=== PATIENT | female | born 1945 | race Caucasian/White ===

== ENCOUNTER 2018-04-10 19:50 | Emergency (ER) | payer OTHER ==
[~2018-04-10] VITALS: Ht 157.5 cm; Wt 76.3 kg
[~2018-04-10 19:50] MED LIST: CHEWABLE ASPIRI81 MG PO; L-THYROXINE SO0.1 MG PO; ZES20 PO
[2018-04-10 23:30] VITALS: BP 165/76
== END 2018-04-10 23:30 | disposition home or self-care (01) ==
LOC: ED 19:50
DX: R19.7 Diarrhea, unspecified (principal); R10.11 Right upper quadrant pain; R11.0 Nausea; I10 Essential (primary) hypertension; Z88.5 Allergy status to narcotic agent; Z90.49 Acquired absence of other specified parts of digestive tract; Z98.51 Tubal ligation status
CPT/HCPCS: Q0162

== ENCOUNTER 2018-05-07 16:36 | Inpatient (IN) | payer OTHER ==
[~2018-05-07] VITALS: Ht 157.5 cm; Wt 75.1 kg
--- NOTE | 2018-05-07 17:05 | NUR ---
EKG IN PROG
--- NOTE | 2018-05-07 17:50 | NUR ---
REC'D A 72/F IN RM 8 WITH C/O INTERMITTMENT SHARP CP X 1 DAY. PT REPORTS LEFT ARM PAIN WITH NUMBNESS WHILE AT THE STORE YESTERDAY. PT REPORTS LEFT ARM PAIN HAS SUBSIDED HOWEVER CP PRESENT. PT DENIES SOB. PT AAOX4, CLEAR SPEEECH, NO FACIAL DROOP, STRONG 2+ UMER IN SHOP SERVICE TECHNICIAN, ON CM, SPOUSE AT BEDSIDE.
--- NOTE | 2018-05-07 17:50 | NUR ---
DR MCKEON AT BEDSIDE FOR MSE.
--- NOTE | 2018-05-07 17:56 | NUR ---
PT AMBULATED TO THE RESTROOM WITH SPECIMEN CONTAINER .
--- NOTE | 2018-05-07 18:09 | NUR ---
XRAY AT BEDSIDE.
--- NOTE | 2018-05-07 18:24 | NUR ---
MEDICATED PT FOR HBP AND CP. PLEASE SEE EMAR.
--- NOTE | 2018-05-07 18:25 | NUR ---
PT TAKEN TO CT VIA WC.
[2018-05-07 18:28] LABS: BASOPHIL % 0.9 % (0-2); PLATELET COUNT 213 x10^3mcL (130-400)
[2018-05-07 18:31] LABS: RED CELL DISTRIBUTION WIDTH 15.4 % (11.5-14.5)
[2018-05-07 18:44] LABS: CALCIUM 8.8 mg/dL (8.5-10.1); CARBON DIOXIDE 31.7 mmol/L (21-32); CHLORIDE SERUM 98 mmol/L (98-107); CREATININE SERUM 0.8 mg/dL (0.6-1.0); GLUCOSE SERUM 106 mg/dL (74-106); POTASSIUM SERUM 4.3 mmol/L (3.5-5.1); SODIUM SERUM 135 mmol/L (136-145)
--- NOTE | 2018-05-07 18:45 | NUR ---
PT BACK FROM CT WITHOUT INCIDENCE, BACK IN ED GURNEY IN POSITION OF COMFORT, A/O X4, RESPS EVEN AND UNLABORED, SKIN WARM/DRY TO TOUCH, NO S/S OF DISTRESS NOTED. AT BEDSIDE, COMFORT MEASURES IN PLACE, CALL LIGHT WITHIN REACH.
[2018-05-07 18:56] LABS: ALKALINE PHOSPHATASE 91 U/L (46-116); ALT/SGPT 19 U/L (14-59); AMYLASE 62 U/L (25-115); AST/SGOT 19 U/L (15-37); BILIRUBIN TOTAL 0.41 mg/dL (0.20-1.00); CHOLESTEROL 177 mg/dL (<200); HDL CHOLESTEROL 56 mg/dL (40-60); LIPASE 100 IU/L (73-393); MAGNESIUM 2.3 mg/dL (1.8-2.4); T4(THYROXINE) 7.5 ug/dL (4.7-13.3); TOTAL PROTEIN, SERUM 7.5 g/dL (6.4-8.2)
[2018-05-07 19:30] LABS: rbc morphology (normal/abnorm) NORMAL (NORMAL)
--- NOTE | 2018-05-07 19:49 | NUR ---
REPORT GIVEN TO EFRAIN BATRES TO ASSUME CARE OF THE PT.
--- NOTE | 2018-05-07 20:35 | NUR ---
RECEIVED PT FROM EFRAIN JALLOH. PT A/OX4. DENIES PAIN. DENIES SOB ON RA. IV PATENT AND FLUSHING WELL. DAUGHTER AT BEDSIDE. ORIENTED PT TO ROOM AND SURROUNDINGS. CALL LIGHT WITHIN REACH, BED IN LOW POSITION. WILL CONTINUE TO MONITOR.
--- NOTE | 2018-05-07 20:35 | NUR ---
PT WAS RECEIVED BY PRIMARY NURSE GISEL FROM ED VIA [place], PT WAS SEEN LYING IN BED, CAME IN DUE TO CHEST PAIN AND LEFT ARM TINGLING SENSATION. AAOX4. DENIES HEADACHE/DIZZINESS. ABLE TO FOLLOW COMMANDS. SPEECH IS CLEAR. HAND VOCAL PERFORMER ARE EQUAL AND STRONG. NO FACIAL DROOP/ARM DRIFT NOTED. NO SOB, LUNG SOUNDS CTA. DENIES CHEST PAIN/PRESSURE, SR W/ DEPRESSED ST, HR AT 69 ON THE MONITOR. DENIES ABDOMINAL DISCOMFORT. BOWEL SOUNDS ACTIVE. VOIDS. IV SITE ON THE RAC IS PATENT AND INTACT. DAUGHTER AND MEDICAL STUDENT AT BEDSIDE. ENDORSED TO PRIMARY NURSE GISEL FOR CONTINUITY OF CARE INCLUDING YM=655/74.
[2018-05-07 20:47] VITALS: BP 177/74
[2018-05-07 20:52] VITALS: Ht 157.5 cm; Wt 75.1 kg
--- NOTE | 2018-05-07 22:40 | NUR ---
PT C/O "SORENESS" AND "PRESSURE" TO L SHOULDER/NECK. BACLOFEN PROVIDED PRN PER EMAR. WILL CONTINUE TO MONITOR.
--- NOTE | 2018-05-08 03:00 | NUR ---
PT REQUESTING TYLENOL FOR MILD 4/10 PAIN TO NECK/SHOULDERS. PROVIDED PER EMAR. WILL CONTINUE TO MONITOR.
[2018-05-08 05:45] VITALS: BP 143/68
[2018-05-08 06:31] LABS: BASOPHIL % 0.3 % (0-2); CALCIUM 8.3 mg/dL (8.5-10.1); CARBON DIOXIDE 28.7 mmol/L (21-32); CHLORIDE SERUM 101 mmol/L (98-107); CREATININE SERUM 0.7 mg/dL (0.6-1.0); GLUCOSE SERUM 125 mg/dL (74-106); PLATELET COUNT 198 x10^3mcL (130-400); POTASSIUM SERUM 3.6 mmol/L (3.5-5.1); SODIUM SERUM 137 mmol/L (136-145)
[2018-05-08 07:12] LABS: RED CELL DISTRIBUTION WIDTH 15.5 % (11.5-14.5)
--- NOTE | 2018-05-08 07:14 | NUR ---
RECEIVED PT FROM NOC EFRAIN BATRES. PT FOUND RESTING IN BED WITH BOTH EYES CLOSED. NO S/S OF ACUTE DISTRESS. SINUS JAYESH WITH DEPRESSED T WAVE , HR 58. NO SOB ON ROOM AIR. R/R EVEN/UNLABORED. IV WNL TO RAC, NO REDNESS, NO SWELLING, NO INFILTRATION. SALINE LOCKED. BED IN LOW POSITION. CALL LIGHT WITHIN REACH. WILL CONT. TO MONITOR.
[2018-05-08 08:32] VITALS: BP 142/65
[2018-05-08 12:07] VITALS: BP 120/61
--- NOTE | 2018-05-08 12:21 | NUR ---
PT LAYING IN BED WITH HOB ELEVATED. NO S/S OF ACUTE DISTRESS. DENIES PAIN. NO SOB ON ROOM AIR. NO NUMBNESS, NO TINGLING. STRENGTH EQUAL BUE/BLE. NO CUEVA. NO DIZZINESS. FACE SYMMETRICAL. AA/OX4. AT BEDSIDE. BED IN LOW POSITION. CALL LIGHT WITHIN REACH. WILL CONT. TO MONITOR.
[2018-05-08 16:14] VITALS: BP 120/52
--- NOTE | 2018-05-08 16:51 | NUR ---
PT LAYING IN BED. AT BEDSIDE. PT AA/OX4. NO S/S OF ACUTE DISTRESS. NO COMPLAINT OF PAIN. NO SOB ON ROOM AIR. NO NUMBNESS, NO TINGLING. STRENGTH EQUAL BUE/BLE. PT CALM/COOPERATIVE. BED IN LOW POSITION. CALL LIGHT WITHIN REACH. WILL CONT. TO MONITOR.
[2018-05-08] MEDS ORDERED: NOR5 PO (16:52)
[2018-05-08] MEDS ORDERED: CYCLOBENZAPRINE5 MG PO (16:52)
[2018-05-08 16:54] VITALS: BP 120/52
--- NOTE | 2018-05-08 17:57 | NUR ---
PT BEING DISCHARGED TO HOME. AWAKE, ALERT, ORIENTED X4. NO S/S OF ACUTE DISTRESS. DENIES PAIN. NO SOB ON ROOM AIR. NO CHEST PAIN. NO N/V. NO DIZZINESS. NO CUEVA. NO NUMBNESS/TINGLING. STRENGTH EQUAL BUE/BLE. AMBULATORY WITH FULL ROM, GAIT STEADY. HAD 3 BMS TODAY, FORMED/BROWN. DISCHARGE EDUCATION PROVIDED TO PT, INSTRUCTED PT TO MAKE FOLLOW UP APPT TO SEE PHYSICIAN WITHIN ONE WEEK. PT VERBALIZED UNDERSTANDING. PRESCRIPTION PROVIDED TO PATIENT. PT EATING DINNER. IV REMOVED FROM RAC, NO REDNESS, NO SWELLING, NO INFILTRATION. NSR ON TELE, TELE REMOVED.
--- NOTE | 2018-05-08 18:17 | NUR ---
PT AMBULATORY TO LOBBY, ESCORTED BY ALPESH RUSSELL. PT AWAKE, ALERT, ORIENTED X4. NO S/S OF ACUTE DISTRESS. NO COMPLAINT OF PAIN. GAIT STEADY. BELONGINGS WITH PATIENT. ACCOMPANIED BY .
== END 2018-05-08 18:20 | disposition home or self-care (01) | DRG 305 ==
LOC: ED 16:36 → DU 19:35
PROVIDERS: Emergency Medicine; ADMIT Internal Medicine
DX: I16.0 Hypertensive urgency (principal); E78.5 Hyperlipidemia, unspecified; R73.03 Prediabetes; E03.9 Hypothyroidism, unspecified
CPT/HCPCS: 82962; 83880; J3490; Q0092

== ENCOUNTER 2018-06-13 13:34 | Emergency (ER) | payer OTHER ==
[~2018-06-13] VITALS: Ht 157.5 cm; Wt 76.8 kg
[~2018-06-13 13:34] MED LIST changes: +CYCLOBENZAPRINE5 MG PO; +NOR5 PO
[2018-06-13 14:14] VITALS: BP 191/95
== END 2018-06-13 15:11 | disposition home or self-care (01) ==
LOC: ED 13:34
DX: S13.4XXA Sprain of ligaments of cervical spine, initial encounter (principal); S00.03XA Contusion of scalp, initial encounter; I10 Essential (primary) hypertension; E03.9 Hypothyroidism, unspecified; Z98.51 Tubal ligation status; Z90.49 Acquired absence of other specified parts of digestive tract; Z98.890 Other specified postprocedural states; W22.8XXA Striking against or struck by other objects, initial encounter; Y93.89 Activity, other specified; Y92.810 Car as the place of occurrence of the external cause; Y99.8 Other external cause status

== ENCOUNTER 2018-07-08 01:20 | Emergency (ER) | payer OTHER ==
[~2018-07-08] VITALS: Ht 157.5 cm; Wt 75.3 kg
[2018-07-08 01:26] VITALS: Ht 157.5 cm; Wt 75.3 kg
[2018-07-08 03:05] VITALS: BP 113/60
== END 2018-07-08 03:05 | disposition home or self-care (01) ==
LOC: ED 01:20
DX: I16.0 Hypertensive urgency (principal); E03.9 Hypothyroidism, unspecified; Z90.49 Acquired absence of other specified parts of digestive tract; Z98.51 Tubal ligation status

== ENCOUNTER 2018-12-22 13:25 | Emergency (ER) | payer OTHER ==
[~2018-12-22] VITALS: Ht 157.5 cm; Wt 75.7 kg
[2018-12-22 13:33] VITALS: BP 164/62; Ht 157.5 cm; Wt 75.7 kg
[2018-12-22 14:41] LABS: microscopic required? NO
[2018-12-22 14:47] LABS: UA SPECIFIC GRAVITY <=1.005 (1.005-1.035); urine erythrocyte NEGATIVE (NEGATIVE)
== END 2018-12-22 15:42 | disposition home or self-care (01) ==
LOC: ED 13:25
PROVIDERS: Emergency Medicine
DX: R30.0 Dysuria (principal); I10 Essential (primary) hypertension; Z90.49 Acquired absence of other specified parts of digestive tract; Z98.51 Tubal ligation status; E03.9 Hypothyroidism, unspecified

== ENCOUNTER 2019-04-19 21:23 | Inpatient (IN) | payer OTHER ==
[~2019-04-19] VITALS: Ht 165.1 cm; Wt 74.8 kg
[2019-04-19 22:21] LABS: BASOPHIL % 0.6 % (0-2); PLATELET COUNT 225 x10^3mcL (130-400); RED CELL DISTRIBUTION WIDTH 14.8 % (11.5-14.5)
[2019-04-19 22:27] LABS: CARBON DIOXIDE 29.8 mmol/L (21-32); CHLORIDE SERUM 96 mmol/L (98-107); CREATININE SERUM 0.7 mg/dL (0.6-1.0); GLUCOSE SERUM 96 mg/dL (74-106); POTASSIUM SERUM 3.6 mmol/L (3.5-5.1); SODIUM SERUM 131 mmol/L (136-145)
[2019-04-19 22:31] LABS: ALBUMIN 3.9 g/dL (3.4-5.0); ALKALINE PHOSPHATASE 98 U/L (46-116); ALT/SGPT 28 U/L (14-59); AST/SGOT 25 U/L (15-37); BILIRUBIN TOTAL 0.43 mg/dL (0.20-1.00); CHOLESTEROL 147 mg/dL (<200); CHOLESTEROL/HDL RATIO 2.5; HDL CHOLESTEROL 60 mg/dL (40-60); LIPASE 81 IU/L (73-393); TOTAL PROTEIN, SERUM 7.6 g/dL (6.4-8.2); TRIGLYCERIDES 42 mg/dL (<150)
[2019-04-19 22:38] LABS: FREE T4 1.19 ng/dL (0.76-1.46); FREE THYROXINE INDEX 2.9 ug/dL (1.4-4.5); T4(THYROXINE) 8.3 ug/dL (4.7-13.3)
[2019-04-19 22:43] LABS: T3 TOTAL 0.77 ng/mL
--- NOTE | 2019-04-19 22:45 | NUR ---
PT A/O X4. RESP EVEN/UNLABORED. STATES CP 510.NON-RADIATING.
[2019-04-19 23:41] LABS: UA SPECIFIC GRAVITY <=1.005 (1.005-1.035); microscopic required? YES; urine erythrocyte NEGATIVE (NEGATIVE)
[2019-04-19] MEDS ORDERED: ASPIRIN ADULT L81 M5 PO (23:48)
[2019-04-19] MEDS ORDERED: LISINOPRIL40 MG PO (23:49)
[2019-04-20] VITALS (7 sets, daily range): BP systolic 14–165; BP diastolic 53–78
--- NOTE | 2019-04-20 | NUR ---
GAVE REPORT TO KALEE AT [id number] ON TELE UNIT
--- NOTE | 2019-04-20 00:29 | NUR ---
PT BP ELEVATED
--- NOTE | 2019-04-20 00:30 | NUR ---
PT BP CONT TO BE ELEVATED, RESIDENT CATHI NOTIFIED AND GAVE HYDRALZINE 20MG IVP PRN ORDER. ADMINISTERED AND WILL MONITOR.
--- NOTE | 2019-04-20 00:45 | NUR ---
Received a call from ED nurse taking care of pt. reported vicki tthe b/p was below 150 at this time and resident ordered PRN order of hydralizing for SBP > 150. Will anticipate . pt. needs and arrival to floor at this time.
--- NOTE | 2019-04-20 01:33 | NUR ---
RECEIVED PT FROM ER, PT ADMIT FOR CHEST PAIN, PT IS A/O X4, VERBAL RESPONSIVE. LUNG SOUND CLEAR BILATRAL, NO COUGH, NO SOB. PT IS ON TELE 14, SR WITH DEPRESSED ST. C/O CHEST PAIN AT MID CHEST 3/10. BOWEL SOUND PRESENT ALL 4 QUADRANTS, NO DISTENTION, NO TENDER. PEDAL PULSE PRESENT BOTH FEET, NO EDEMA, IV AT LEFT AC, NO LEAKING, NO INFILTRAITON. ALL ADLS ASSIST, ALL NEED MET, CALL LIGHT IN REACH, WILL CONTINUE TO MONITOR.
--- NOTE | 2019-04-20 06:11 | NUR ---
Pt. c/o of h/a at this time, 08/17, throbbing to one side. Will medicate with tylenol as ordered and continue to monitor pt.
[2019-04-20 06:41] LABS: BASOPHIL % 0.3 % (0-2)
[2019-04-20 06:48] LABS: CALCIUM 8.6 mg/dL (8.5-10.1); CARBON DIOXIDE 29.8 mmol/L (21-32); CHLORIDE SERUM 104 mmol/L (98-107); CREATININE SERUM 0.6 mg/dL (0.6-1.0); GLUCOSE SERUM 105 mg/dL (74-106); MAGNESIUM 2.3 mg/dL (1.8-2.4); PHOSPHOROUS 3.1 mg/dL (2.5-4.9); POTASSIUM SERUM 4.3 mmol/L (3.5-5.1); SODIUM SERUM 140 mmol/L (136-145)
--- NOTE | 2019-04-20 06:49 | NUR ---
Pt. currently in bed resting, no c/o of sob, pain, or s/o distress. Pt. tolerating IVF and IV ab(x). Pt. was resting for most of the night, pt. complained of not being able to sleep, will endorse to next shift RN to request for isac cortez. Will continuet o monitor pt. and endorse to next shift RN.
--- NOTE | 2019-04-20 07:45 | NUR ---
RECEIVED REPORT FROM CHARGE NURSE MAURISIO PATIENT LYING IN BED A&O X4, DENIES ANY CHEST PAIN OR PRESSURE AT THIS TIME. IV ON LAC PATENT AND INTACT. ASSESSMENT COMPLETE. ALL QUESTIONS AND CONCERNS ADDRESSED AT THIS TIME. BED IN LOWEST POSITION CALL LIGHT WITHIN REACH. WILL CONTINUE TO MONITOR.
[2019-04-20 08:30] LABS: PLATELET COUNT 209 x10^3mcL (130-400); RED CELL DISTRIBUTION WIDTH 14.6 % (11.5-14.5)
--- NOTE | 2019-04-20 09:20 | NUR ---
ADMINISTERED SCHEDULED MEDS PER MAR PATIENT TOLERATED WELL NO ADVERSE REACTIONS NOTED. ALL NEEDS ATTENDED TO AT THIS TIME. SAFETY PRECAUTIONS IN PLACE. WILL CONTINUE TO MONITOR.
--- NOTE | 2019-04-20 11:52 | NUR ---
UPDATED PATIENT ON CARE PATIENT LYING IN BED WITH EYES CLOSED. AT BEDSIDE PATIENT DENIES ANY CHEST PAIN OR PRESSURE AT THIS TIME. ALL NEEDS ATTENDED TO AT THIS TIME. BED IN LOWEST POSITION CALL LIGHT WITHIN REACH. WILL CONTINUE TO MONITOR.
--- NOTE | 2019-04-20 13:00 | NUR ---
PATIENT SITTING UP IN BED EATING LUNCH TOLERATING DIET WELL. PATIENT DENIES CHEST PAIN AT THIS TIME. NO S/S OF ANY ACUTE DISTRESS. ALL NEEDS ATTENDED TO AT THIS TIME. BED IN LOWEST POSITION CALL LIGHT WITHIN REACH. WILL CONTINUE TO MONITOR.
--- NOTE | 2019-04-20 14:40 | NUR ---
NOTIFIED DR. DELGADO OF 3RD TROP 0.143 DR STATED "I WILL SPEAK WITH DR PÉREZ BEFORE STARTING ANY NEW ORDERS." VERBALIZED UNDERSTANDING WILL PROCEED DIRECTED. PATIENT AMBULATED IN HALLWAY NO S/S OF ANY DISTRESS STEADY GAIT AND BALANCE NOTED. SENIOR CONSTRUCTION PROJECT MANAGER AT BEDSIDE. PATIENT DENIES ANY CHEST PAIN OR PRESSURE AT THIS TIME. ALL NEEDS ATTENDED TO. SAFETY PRECAUTIONS IN PLACE. WILL CONTINUE TO MONITOR.
--- NOTE | 2019-04-20 16:01 | NUR ---
IV ON LAC PATIENT COMPLAINING OF PAIN D/C'D IV INSERTED NEW ONE ON RFA 22G PATENT AND INTACT PATIENT TOLERATED WELL. ALL NEEDS ATTENDED TO AT THIS TIME. BED IN LOWEST POSITION CALL LIGHT WITHIN REACH. WILL CONTINUE TO MONITOR.
--- NOTE | 2019-04-20 18:29 | NUR ---
PATIENT SITTING UP IN BED TALKING WITH PATIENT DENIES ANY PAIN AT THIS TIME. UPDATED SON ON PATIENT STATUS. ALL QUESTIONS AND CONCERNS ADDRESSED AT THIS TIME. ON TELE MONITOR 14 NSR DENIES CHEST PAIN OR PRESSURE. IV ON RFA PATENT AND INTACT. BED IN LOWEST POSITION CALL LIGHT WITHIN REACH. WILL ENDORSE CARE TO NIGHT NURSE.
--- NOTE | 2019-04-20 19:30 | NUR ---
PT IS A/O x4. TELE #14, NSR. DENIES ANY CHEST PAIN OR PRESSURE. PULSES ARE PRESENT. NO EDEMA NOTED. LUNGS CLEAR IN ALL FEILDS. ON RA, DENIES ANY SOB. EQAUL CHEST RISE AND FALL. NO SIGN OF RESP DISTRESS. BOWEL SOUNDS ARE PRESENT. COMPLAIN OF GAS, REQUESTED MEDICATION. WILL NOTIFY MD ABOUT PT REQUEST. SKIN WARM AND INTACT. DENIES ANY PAIN AT THIS TIME. SALINE LOCKED ON RFA. INTACT AND CLEAN. FAMILY IS AT BEDSIDE. DENIES ANY PAIN AT THIS TIME. BED IS AT LOWEST SETTING. CALL LIGHT WITHIN REACH. WILL CONTINUE TO [facility].
--- NOTE | 2019-04-21 00:39 | NUR ---
PT IS RESTING IN BED WITH BOTH EYES CLOSED. BREATHING EVEN AND UNLABORED. NO SIGN OF DISTRESS NOTED. PT NPO FOR KRISTEN SCAN TOMORROW. BED IS AT LOWEST SETTING. CALL LIGHT WITHIN REACH. WILL CONTINUE TO MONITOR.
[2019-04-21 06:10] VITALS: BP 154/72
--- NOTE | 2019-04-21 06:16 | NUR ---
PT IS RESTING IN BED. DENIES ANY PAIN OR DISTRESS. MD IS REFUSING LEXISCAN THIS AM. MD SANCHEZ WAS MADE AWARE. MD TO PAGE MD PÉREZ. BED IS AT LOWEST SETTING. CALL LIGHT WITHIN REACH. WILL ENDORSE TO AM NURSE.
[2019-04-21 06:17] LABS: BASOPHIL % 0.6 % (0-2)
[2019-04-21 06:35] LABS: CALCIUM 9.1 mg/dL (8.5-10.1); CARBON DIOXIDE 29.5 mmol/L (21-32); CHLORIDE SERUM 102 mmol/L (98-107); CREATININE SERUM 0.8 mg/dL (0.6-1.0); GLUCOSE SERUM 99 mg/dL (74-106); POTASSIUM SERUM 4.6 mmol/L (3.5-5.1); SODIUM SERUM 137 mmol/L (136-145)
--- NOTE | 2019-04-21 07:30 | NUR ---
PATIENT SITTING UP IN BED AWAKE ALERT AND ORIENTED. PATIENT TO HAVE A LEXISCAN DONE THIS AM, BUT IS REFUSING. DR DELGADO AT BEDSIDE TO SPEAK WITH PATIENT. PATIENT STILL REFUSING. NPO FOR TEST. HL PATENT, FLUSHED WELL. TELE 14 NSR WITH DEPRESSED T WAVE. DENIES ANY CHEST PAIN OR DISCOMFORT. AMBULATES AD BLAKE. NO ACUTE DISTRESS NOTED.RESP EVEN AND UNLABORED, LUNGS CLEAR.
[2019-04-21 08:00] LABS: RED CELL DISTRIBUTION WIDTH 15.4 % (11.5-14.5)
[2019-04-21 08:02] VITALS: BP 141/68
[2019-04-21 08:36] LABS: PLATELET COUNT 242 x10^3mcL (130-400)
--- NOTE | 2019-04-21 11:00 | NUR ---
I HAVE REVIEWED THE DATA COLLECTION BY MEDICAL ACCOUNTANT (NAME): ENTERED ON (DATE/TIME): I CONCUR WITH THE DATA AND ANY EXCEPTIONS OR COMMENTS ARE LISTED BELOW: PATIENT'S PLAN OF CARE WAS DISCUSSED AND REVIEWED WITH MEDICAL ACCOUNTANT:PING LEON
[2019-04-21 11:36] VITALS: BP 160/78
--- NOTE | 2019-04-21 14:48 | NUR ---
PATIENT READY FOR D/C HOME. HL AND TELE DC'D. DISCHARGE INSTRUCTIONS GIVEN. PERSONAL BELONGINGS LIST SIGNED. EDUCATION PROVIDED. CONDITION APPEARS STABLE.
== END 2019-04-21 14:48 | disposition home or self-care (01) | DRG 281 ==
LOC: ED 21:23 → DU 23:25
PROVIDERS: Specialist; ADMIT Internal Medicine
DX: I21.A1 Myocardial infarction type 2 (principal); E87.1 Hypo-osmolality and hyponatremia; I16.0 Hypertensive urgency; E78.5 Hyperlipidemia, unspecified; E03.9 Hypothyroidism, unspecified; Z79.82 Long term (current) use of aspirin
CPT/HCPCS: 83880; 84439; G0378; J0360; J0696; J3490; J7030; J7060; Q0092

== ENCOUNTER 2019-06-14 17:25 | Inpatient (IN) | payer OTHER ==
[~2019-06-14] VITALS: Ht 157.5 cm; Wt 75.3 kg
[~2019-06-14 17:25] MED LIST changes: +ASPIRIN ADULT L81 M5 PO; +LISINOPRIL40 MG PO
[2019-06-14 17:32] VITALS: Ht 157.5 cm; Wt 75.3 kg
[2019-06-14 19:30] LABS: microscopic required? NO
[2019-06-14 19:46] LABS: BASOPHIL % 0.7 % (0-2); PLATELET COUNT 202 x10^3mcL (130-400)
[2019-06-14 19:46] LABS: UA SPECIFIC GRAVITY <=1.005 (1.005-1.035); urine erythrocyte NEGATIVE (NEGATIVE)
[2019-06-14 19:55] LABS: RED CELL DISTRIBUTION WIDTH 15.7 % (11.5-14.5)
[2019-06-14 20:03] LABS: AMPHETAMINE QUAL UR NONE DETECTED (See below)
[2019-06-14] MEDS ORDERED: NAPROXEN500 MG PO (20:07)
[2019-06-14] MEDS ORDERED: BACLOFEN5 MG PO (20:08)
[2019-06-14] MEDS ORDERED: MI-ACID GAS REL80 MG PO (20:08)
[2019-06-14 20:09] LABS: CALCIUM 8.9 mg/dL (8.5-10.1); CARBON DIOXIDE 32.5 mmol/L (21-32); CHLORIDE SERUM 104 mmol/L (98-107); GLUCOSE SERUM 122 mg/dL (74-106); POTASSIUM SERUM 3.9 mmol/L (3.5-5.1); SODIUM SERUM 142 mmol/L (136-145)
[2019-06-14 20:21] LABS: ALBUMIN 3.8 g/dL (3.4-5.0); ALKALINE PHOSPHATASE 89 U/L (46-116); ALT/SGPT 21 U/L (14-59); AST/SGOT 22 U/L (15-37); BILIRUBIN TOTAL 0.37 mg/dL (0.20-1.00); CHOLESTEROL 185 mg/dL (<200); HDL CHOLESTEROL 59 mg/dL (40-60); LIPASE 74 IU/L (73-393); MAGNESIUM 2.4 mg/dL (1.8-2.4); TOTAL PROTEIN, SERUM 7.5 g/dL (6.4-8.2)
[2019-06-14 21:38] LABS: CHOLESTEROL/HDL RATIO 3.1; PHOSPHOROUS 3.1 mg/dL (2.5-4.9)
[2019-06-14 21:45] LABS: FREE T4 1.11 ng/dL (0.76-1.46); FREE THYROXINE INDEX 3.4 ug/dL (1.4-4.5); T3 TOTAL 0.91 ng/mL; T4(THYROXINE) 8.9 ug/dL (4.7-13.3)
[2019-06-14 22:43] VITALS: BP 174/80
[2019-06-14 23:30] VITALS: BP 113/54
[2019-06-15 03:26] LABS: BASOPHIL % 0.1 % (0-2); PLATELET COUNT 199 x10^3mcL (130-400)
[2019-06-15 04:03] LABS: CALCIUM 8.6 mg/dL (8.5-10.1); CARBON DIOXIDE 28.3 mmol/L (21-32); CHLORIDE SERUM 104 mmol/L (98-107); GLUCOSE SERUM 159 mg/dL (74-106); MAGNESIUM 2.3 mg/dL (1.8-2.4); PHOSPHOROUS 3.6 mg/dL (2.5-4.9); POTASSIUM SERUM 4.2 mmol/L (3.5-5.1); SODIUM SERUM 141 mmol/L (136-145)
[2019-06-15 06:01] VITALS: BP 106/45
[2019-06-15 07:55] VITALS: BP 110/46
[2019-06-15 11:55] VITALS: BP 124/57
[2019-06-15 17:49] VITALS: BP 113/54
[2019-06-15 22:59] VITALS: BP 123/60
[2019-06-16 06:30] VITALS: BP 115/51
[2019-06-16 07:13] LABS: BASOPHIL % 0.6 % (0-2); PLATELET COUNT 183 x10^3mcL (130-400)
[2019-06-16 07:17] LABS: RED CELL DISTRIBUTION WIDTH 16.1 % (11.5-14.5)
[2019-06-16 07:29] LABS: CALCIUM 8.8 mg/dL (8.5-10.1); CARBON DIOXIDE 27.5 mmol/L (21-32); CHLORIDE SERUM 106 mmol/L (98-107); CREATININE SERUM 0.8 mg/dL (0.6-1.0); GLUCOSE SERUM 98 mg/dL (74-106); POTASSIUM SERUM 3.9 mmol/L (3.5-5.1); SODIUM SERUM 141 mmol/L (136-145)
[2019-06-16 09:14] VITALS: BP 139/65
[2019-06-16 17:44] VITALS: BP 147/62
[2019-06-16 23:20] VITALS: BP 154/67
[2019-06-17 06:07] VITALS: BP 130/59
[2019-06-17 06:58] LABS: BASOPHIL % 0.6 % (0-2); PLATELET COUNT 203 x10^3mcL (130-400)
[2019-06-17 07:04] LABS: RED CELL DISTRIBUTION WIDTH 16.2 % (11.5-14.5)
[2019-06-17 07:11] LABS: CALCIUM 8.7 mg/dL (8.5-10.1); CARBON DIOXIDE 28.3 mmol/L (21-32); CHLORIDE SERUM 106 mmol/L (98-107); CREATININE SERUM 0.6 mg/dL (0.6-1.0); GLUCOSE SERUM 96 mg/dL (74-106); SODIUM SERUM 142 mmol/L (136-145)
[2019-06-17] MEDS ORDERED: NOR10 PO (08:56)
[2019-06-17] MEDS ORDERED: ZES20 PO (08:57)
[2019-06-17 09:09] VITALS: BP 136/54
[2019-06-17 10:24] VITALS: BP 127/51
== END 2019-06-17 12:30 | disposition home or self-care (01) | DRG 282 ==
LOC: ED 17:25 → DU 20:53
PROVIDERS: Emergency Medicine; ADMIT Internal Medicine
DX: I16.0 Hypertensive urgency (principal); I21.A1 Myocardial infarction type 2; M62.838 Other muscle spasm; E03.9 Hypothyroidism, unspecified; I10 Essential (primary) hypertension; M50.30 Other cervical disc degeneration, unspecified cervical region; Z79.82 Long term (current) use of aspirin; Z68.30 Body mass index [BMI] 30.0-30.9, adult
CPT/HCPCS: 83880; 84439; A9500; G0378; J0360; J1100; J1885; J2785; J3490; Q0092

== ENCOUNTER 2020-06-06 22:52 | Emergency (ER) | payer OTHER ==
[~2020-06-06] VITALS: Ht 157.5 cm; Wt 78.5 kg
[~2020-06-06 22:52] MED LIST changes: +BACLOFEN5 MG PO; +MI-ACID GAS REL80 MG PO; +NAPROXEN500 MG PO; +NOR10 PO
[2020-06-06 23:06] VITALS: Ht 157.5 cm; Wt 78.5 kg
[2020-06-07] MEDS ORDERED: MIRALAX17 GM PO (00:38)
[2020-06-07] MEDS ORDERED: ATIVAN0.5 M1 PO (00:38)
[2020-06-07 00:52] VITALS: BP 117/58
== END 2020-06-07 00:52 | disposition home or self-care (01) ==
LOC: ED 22:52
DX: I16.0 Hypertensive urgency (principal); E03.9 Hypothyroidism, unspecified; Z88.5 Allergy status to narcotic agent; Z98.890 Other specified postprocedural states; Z90.49 Acquired absence of other specified parts of digestive tract